=== PATIENT | female | born 1935 | race Caucasian/White ===

== ENCOUNTER 2018-05-06 16:20 | Observation (INO) ==
[2018-05-06] MEDS ORDERED: ALUM/MAG/SIMETH/LIDO VISC 1:1 30 ML BOTTLE PO STA (16:47)
[2018-05-06] MEDS ORDERED: SODIUM CHLORIDE 0.9% 500 ML IV STA (16:47)
[2018-05-06] MEDS ORDERED: METOPROLOL TARTRATE 25 MG TABLET PO STA (16:47)
[2018-05-06] MEDS ORDERED: ASPIRIN 325 MG TABLET PO STA (16:47)
[2018-05-06] MEDS ORDERED: ONDANSETRON 4 MG/2 ML VIAL IV STA (16:47)
[2018-05-06] MEDS ORDERED: MORPHINE 4 MG/1 ML VIAL IV STA (16:47)
[2018-05-06] MEDS ORDERED: NITROGLYCERIN 2% OINT 1 INCH/GM PACK TOP STA (16:47)
[2018-05-06 16:52] LABS: Basophils % 0.6 % (0.0-0.8); Eosinophils # 0.2 10*3/uL (0.0-0.87); Eosinophils % 2.2 % (0.00-10.9); Hematocrit 37.7 VOL% (35.7-47.0); Hemoglobin 12.4 GM/DL (12.0-16.0); Immature Granulocytes % 0.4 %; Immature Granulocytes Absolute 0.03 #; Lymphocytes # 1.6 10*3/uL (1.4-4.0); Lymphocytes % 21.6 % (21.3-54.2); Mean Corpuscular HGB Conc 32.9 GM/DL (32-36); Mean Corpuscular Hemoglobin 29 PG (27-34); Mean Corpuscular Volume 87.1 FL (87-102); Mean Platelet Volume 9.1 FL (9.6-12.0); Monocytes # 0.7 10*3/uL (0.11-0.8); Neutrophils # 4.7 10*3/uL (1.4-7.4); Neutrophils % 65.2 % (38.7-73.9); Platelet Count 250 T/CUMM (130-400); Red Blood Count 4.33 MC/CUMM (3.8-5.5); Red Cell Distribution Width 13.3 % (9.3-17.3); White Blood Count 7.2 T/CUMM (4-12)
[2018-05-06 17:01] LABS: PT Patient Result 10.7 SECS
[2018-05-06 17:17] LABS: Alanine Aminotransferase 17 U/L (13-56); Albumin 2.9 G/DL (3.4-5.0); Alkaline Phosphatase 107 U/L (45-117); Aspartate Amino Transferase 15 U/L (0-37); Bilirubin,Total < 0.39 MG/DL (0.2-1.0); Blood Urea Nitrogen 8 MG/DL (7-18); Calcium 9.5 MG/DL (8.5-10.1); Glucose 100 MG/DL (74-106); Osmolality,Calculated 283.8 MOS/KG (273-304); Potassium 2.7 MMOL/L (3.5-5.1); Sodium 144 MMOL/L (136-145); Total Protein 6.8 G/DL (6.4-8.3)
[2018-05-06] MEDS ORDERED: POTASSIUM CHLORIDE 20 MEQ TABLET PO STA (17:27)
[2018-05-06 17:38] LABS: Apearance,Urine CLEAR (Clear); Bilirubin,Urine Negative (Negative); Blood, Urine Negative (Negative); Glucose,Urine (UA) Negative (Negative); Ketones,Urine Negative (Negative); Nitrite,Urine Negative (Negative); Protein,Urine Negative; RBC,Urine 1 /HPF (0-4); Urine Color Colorless (Yellow); Urine Specific Gravity 1.004 (1.001-1.035); Urine Urobilinogen < 2.0 EU/DL (0.2-1.0)
[2018-05-06] MEDS ORDERED: ONDANSETRON 4 MG/2 ML VIAL IV PRN (19:46)
[2018-05-06] MEDS ORDERED: MORPHINE 4 MG/1 ML VIAL IV PRN (19:46)
[2018-05-06] MEDS: DOCUSATE SODIUM 100 MG CAPSULE PO SCH (21:01)
[2018-05-06] MEDS: SODIUM CHLORIDE 0.9% 1,000 ML IV SCH (21:01)
[2018-05-06] MEDS: APIXABAN 2.5 MG TABLET PO SCH (21:01)
[2018-05-06] MEDS: SIMVASTATIN 20 MG TABLET PO SCH (21:01)
[2018-05-07] MEDS: NITROGLYCERIN 2% OINT 1 INCH/GM PACK TOP SCH ×5 (00:04→23:02)
[2018-05-07 03:40] LABS: Basophils % 0.7 % (0.0-0.8); Eosinophils # 0.2 10*3/uL (0.0-0.87); Hematocrit 30.7 VOL% (35.7-47.0); Hemoglobin 10.1 GM/DL (12.0-16.0); Immature Granulocytes % 0.4 %; Immature Granulocytes Absolute 0.02 #; Lymphocytes # 1.3 10*3/uL (1.4-4.0); Lymphocytes % 28.4 % (21.3-54.2); Mean Corpuscular HGB Conc 32.9 GM/DL (32-36); Mean Corpuscular Hemoglobin 29 PG (27-34); Mean Platelet Volume 9.5 FL (9.6-12.0); Monocytes # 0.6 10*3/uL (0.11-0.8); Monocytes % 12.6 % (1.7-12.7); Neutrophils # 2.4 10*3/uL (1.4-7.4); Neutrophils % 53.9 % (38.7-73.9); Platelet Count 184 T/CUMM (130-400); Red Blood Count 3.49 MC/CUMM (3.8-5.5); Red Cell Distribution Width 13.5 % (9.3-17.3); White Blood Count 4.5 T/CUMM (4-12)
[2018-05-07 04:01] LABS: Albumin 2.2 G/DL (3.4-5.0); Bilirubin,Total 0.9 MG/DL (0.2-1.0); Calcium 8.8 MG/DL (8.5-10.1); Osmolality,Calculated 289.6 MOS/KG (273-304); Potassium 3.2 MMOL/L (3.5-5.1); Risk Ratio 2.3; Total Protein 5.2 G/DL (6.4-8.3); VLDL CHOLESTEROL 25.2 MG/DL
[2018-05-07] MEDS: LEVOTHYROXINE 50 MCG TABLET PO SCH ×2 (06:04→09:23)
[2018-05-07] MEDS: ACETAMINOPHEN 325 MG TABLET PO PRN ×2 (08:09→17:13)
[2018-05-07] MEDS ORDERED: ASPIRIN EC 81 MG TABLET PO SCH (09:00)
[2018-05-07] MEDS: LOSARTAN 25 MG TABLET PO SCH (09:23)
[2018-05-07] MEDS: PARoxetine 20 MG TABLET PO SCH (09:23)
[2018-05-07] MEDS: DOCUSATE SODIUM 100 MG CAPSULE PO SCH ×2 (09:23→21:45)
[2018-05-07] MEDS: PANTOPRAZOLE 40 MG TABLET PO SCH (09:23)
[2018-05-07] MEDS: APIXABAN 2.5 MG TABLET PO SCH ×2 (09:23→21:45)
[2018-05-07] MEDS: FUROSEMIDE 20 MG TABLET PO SCH (09:23)
[2018-05-07] MEDS: SODIUM CHLORIDE 0.9% 1,000 ML IV SCH (09:39)
[2018-05-07] MEDS: POTASSIUM CHLORIDE 20 MEQ TABLET PO PRN ×4 (09:39→16:31)
[2018-05-07] MEDS ORDERED: POTASSIUM CHLORIDE RIDER 10 MEQ in PREMIX 1 EACH IV PRN (10:44)
[2018-05-07 14:02] LABS: Hematocrit 35.7 VOL% (35.7-47.0); Hemoglobin 11.7 GM/DL (12.0-16.0)
[2018-05-07 14:35] LABS: Free T4 (Free Thyroxine) 0.98 NG/DL (0.76-1.46); Thyroid Stimulating Hormone 3.64 uIU/ml (0.358-3.74)
[2018-05-07] MEDS: DRONEDARONE 400 MG TABLET PO SCH (17:12)
[2018-05-07] MEDS: SIMVASTATIN 20 MG TABLET PO SCH (21:45)
[2018-05-08 04:42] LABS: Basophils % 0.3 % (0.0-0.8); Eosinophils # 0.2 10*3/uL (0.0-0.87); Hematocrit 33.6 VOL% (35.7-47.0); Hemoglobin 10.8 GM/DL (12.0-16.0); Immature Granulocytes % 0.3 %; Immature Granulocytes Absolute 0.02 #; Lymphocytes # 1.4 10*3/uL (1.4-4.0); Lymphocytes % 22.1 % (21.3-54.2); Mean Corpuscular HGB Conc 32.1 GM/DL (32-36); Mean Corpuscular Hemoglobin 28 PG (27-34); Mean Corpuscular Volume 88.2 FL (87-102); Mean Platelet Volume 9.3 FL (9.6-12.0); Monocytes # 0.6 10*3/uL (0.11-0.8); Monocytes % 8.7 % (1.7-12.7); Neutrophils # 4.1 10*3/uL (1.4-7.4); Neutrophils % 65.6 % (38.7-73.9); Platelet Count 217 T/CUMM (130-400); Red Blood Count 3.81 MC/CUMM (3.8-5.5); Red Cell Distribution Width 13.3 % (9.3-17.3); White Blood Count 6.3 T/CUMM (4-12)
[2018-05-08 05:11] LABS: Calcium 9.1 MG/DL (8.5-10.1); Osmolality,Calculated 287.7 MOS/KG (273-304); Potassium 4.7 MMOL/L (3.5-5.1)
[2018-05-08] MEDS: NITROGLYCERIN 2% OINT 1 INCH/GM PACK TOP SCH ×2 (06:01→12:37)
[2018-05-08] MEDS: LEVOTHYROXINE 50 MCG TABLET PO SCH (06:01)
[2018-05-08 08:20] VITALS: BP 136/68
[2018-05-08] MEDS: PANTOPRAZOLE 40 MG TABLET PO SCH (09:01)
[2018-05-08] MEDS: LOSARTAN 25 MG TABLET PO SCH (09:01)
[2018-05-08] MEDS: DRONEDARONE 400 MG TABLET PO SCH (09:01)
[2018-05-08] MEDS: FUROSEMIDE 20 MG TABLET PO SCH (09:01)
[2018-05-08] MEDS: APIXABAN 2.5 MG TABLET PO SCH (09:01)
[2018-05-08] MEDS: DOCUSATE SODIUM 100 MG CAPSULE PO SCH (09:01)
[2018-05-08] MEDS: PARoxetine 20 MG TABLET PO SCH (09:01)
[2018-05-08] MEDS ORDERED: POTASSIUM CHLORIDE 20 MEQ TABLET PO SCH (13:30)
== END 2018-05-08 13:25 | disposition home or self-care (01) ==
LOC: EDUNIT# → EDBD → N.ED 16:20 → N.EDINP 16:20 → N.TELES 19:17
PROVIDERS: ADMIT Family Medicine; ATTEND Family Medicine

== ENCOUNTER 2018-05-16 20:11 | Inpatient (IN) ==
[2018-05-16] MEDS ORDERED: DILTIAZEM 50 MG/10 ML VIAL IV STA (20:37)
[2018-05-16] MEDS ORDERED: ONDANSETRON 4 MG/2 ML VIAL IV STA (20:37)
[2018-05-16] MEDS ORDERED: DILTIAZEM 25 MG/5 ML VIAL IV ONE (20:59)
[2018-05-16] MEDS ORDERED: METOPROLOL TARTRATE 25 MG TABLET PO STA (21:17)
[2018-05-16 21:24] LABS: Basophils # 0.1 10*3/uL (0.0-0.2); Basophils % 0.5 % (0.0-0.8); Eosinophils # 0.1 10*3/uL (0.0-0.87); Eosinophils % 1.2 % (0.00-10.9); Hematocrit 43.8 VOL% (35.7-47.0); Hemoglobin 14.6 GM/DL (12.0-16.0); Immature Granulocytes % 0.6 %; Immature Granulocytes Absolute 0.06 #; Lymphocytes # 1.8 10*3/uL (1.4-4.0); Lymphocytes % 19.8 % (21.3-54.2); Mean Corpuscular HGB Conc 33.3 GM/DL (32-36); Mean Corpuscular Hemoglobin 29 PG (27-34); Mean Corpuscular Volume 87.3 FL (87-102); Mean Platelet Volume 9.4 FL (9.6-12.0); Monocytes # 0.8 10*3/uL (0.11-0.8); Monocytes % 8.1 % (1.7-12.7); Neutrophils # 6.5 10*3/uL (1.4-7.4); Neutrophils % 69.8 % (38.7-73.9); Platelet Count 356 T/CUMM (130-400); Red Blood Count 5.02 MC/CUMM (3.8-5.5); Red Cell Distribution Width 13.2 % (9.3-17.3); White Blood Count 9.3 T/CUMM (4-12)
[2018-05-16 21:39] LABS: PT Patient Result 10.7 SECS; Partial Thromboplastin Time 30.8 SECS (0-40)
[2018-05-16 21:52] LABS: Alanine Aminotransferase 15 U/L (13-56); Albumin 2.9 G/DL (3.4-5.0); Alkaline Phosphatase 125 U/L (45-117); Aspartate Amino Transferase 13 U/L (0-37); Bilirubin,Total < 0.39 MG/DL (0.2-1.0); Blood Urea Nitrogen 18 MG/DL (7-18); Calcium 11.3 MG/DL (8.5-10.1); Glucose 148 MG/DL (74-106); Osmolality,Calculated 281.5 MOS/KG (273-304); Potassium 4.4 MMOL/L (3.5-5.1); Sodium 139 MMOL/L (136-145); Total Protein 7.3 G/DL (6.4-8.3); Troponin I 0.015 NG/ML (0.00-0.045)
[2018-05-16 21:58] LABS: Free T4 (Free Thyroxine) 1.1 NG/DL (0.76-1.46); Thyroid Stimulating Hormone 5.13 uIU/ml (0.358-3.74)
[2018-05-16] MEDS ORDERED: ONDANSETRON 4 MG/2 ML VIAL IV PRN (22:22)
[2018-05-16] MEDS ORDERED: ACETAMINOPHEN 500 MG TABLET PO PRN (22:22)
[2018-05-17 04:50] LABS: Troponin I 0.021 NG/ML (0.00-0.045)
[2018-05-17] MEDS ORDERED: LEVOTHYROXINE 50 MCG TABLET PO SCH (06:30)
[2018-05-17] MEDS ORDERED: DRONEDARONE 400 MG TABLET PO SCH (08:00)
[2018-05-17] MEDS ORDERED: FUROSEMIDE 40 MG/4 ML VIAL IV SCH (08:00)
[2018-05-17] MEDS ORDERED: PANTOPRAZOLE 40 MG TABLET PO SCH (09:00)
[2018-05-17] MEDS ORDERED: METOPROLOL TARTRATE 25 MG TABLET PO SCH (09:00)
[2018-05-17] MEDS ORDERED: PARoxetine 20 MG TABLET PO SCH (09:00)
[2018-05-17] MEDS ORDERED: APIXABAN 5 MG TABLET PO SCH (09:00)
[2018-05-17] MEDS: LOSARTAN 25 MG TABLET PO SCH (13:45)
[2018-05-17] MEDS: APIXABAN 5 MG TABLET PO SCH ×2 (13:45→21:09)
[2018-05-17] MEDS: PARoxetine 20 MG TABLET PO SCH (13:45)
[2018-05-17] MEDS: DRONEDARONE 400 MG TABLET PO SCH ×2 (13:45→16:42)
[2018-05-17] MEDS: POTASSIUM CHLORIDE 20 MEQ TABLET PO SCH (13:45)
[2018-05-17] MEDS: FUROSEMIDE 20 MG TABLET PO SCH (13:45)
[2018-05-17] MEDS: SIMVASTATIN 20 MG TABLET PO SCH (16:42)
[2018-05-17] MEDS ORDERED: LOVASTATIN 20 MG TABLET PO SCH (17:00)
[2018-05-18 04:50] LABS: Basophils # 0.1 10*3/uL (0.0-0.2); Basophils % 0.6 % (0.0-0.8); Eosinophils # 0.2 10*3/uL (0.0-0.87); Eosinophils % 2.2 % (0.00-10.9); Hematocrit 40.9 VOL% (35.7-47.0); Immature Granulocytes % 0.5 %; Immature Granulocytes Absolute 0.04 #; Lymphocytes # 2.8 10*3/uL (1.4-4.0); Lymphocytes % 34.4 % (21.3-54.2); Mean Corpuscular HGB Conc 31.8 GM/DL (32-36); Mean Corpuscular Hemoglobin 28 PG (27-34); Mean Corpuscular Volume 89.3 FL (87-102); Mean Platelet Volume 9.1 FL (9.6-12.0); Monocytes # 0.8 10*3/uL (0.11-0.8); Monocytes % 9.5 % (1.7-12.7); Neutrophils # 4.4 10*3/uL (1.4-7.4); Neutrophils % 52.8 % (38.7-73.9); Platelet Count 332 T/CUMM (130-400); Red Blood Count 4.58 MC/CUMM (3.8-5.5); Red Cell Distribution Width 13.1 % (9.3-17.3); White Blood Count 8.3 T/CUMM (4-12)
[2018-05-18 05:14] LABS: Calcium 9.7 MG/DL (8.5-10.1); Osmolality,Calculated 281.5 MOS/KG (273-304); Potassium 4.4 MMOL/L (3.5-5.1)
[2018-05-18] MEDS ORDERED: LEVOTHYROXINE 50 MCG TABLET PO SCH (06:30)
[2018-05-18] MEDS: LOSARTAN 25 MG TABLET PO SCH (09:00)
[2018-05-18] MEDS: APIXABAN 5 MG TABLET PO SCH ×2 (09:00→21:17)
[2018-05-18] MEDS: PARoxetine 20 MG TABLET PO SCH (09:00)
[2018-05-18] MEDS: DRONEDARONE 400 MG TABLET PO SCH (09:00)
[2018-05-18] MEDS: POTASSIUM CHLORIDE 20 MEQ TABLET PO SCH (09:00)
[2018-05-18] MEDS: FUROSEMIDE 20 MG TABLET PO SCH (09:00)
[2018-05-18] MEDS ORDERED: SOTALOL 80 MG TABLET PO ONE (10:08)
[2018-05-18 11:48] LABS: Apearance,Urine CLEAR (Clear); Bilirubin,Urine Negative (Negative); Blood, Urine Negative (Negative); Glucose,Urine (UA) Negative (Negative); Hyaline Casts,Urine 4 /LPF (0-3); Ketones,Urine Negative (Negative); Mucus,Urine Occasional /LPF (Occasional); Nitrite,Urine Negative (Negative); Protein,Urine Negative; RBC,Urine <1 /HPF (0-4); Urine Color Straw (Yellow); Urine Specific Gravity 1.006 (1.001-1.035); Urine Urobilinogen < 2.0 EU/DL (0.2-1.0)
[2018-05-18] MEDS: SIMVASTATIN 20 MG TABLET PO SCH (17:16)
[2018-05-18] MEDS: SOTALOL 80 MG TABLET PO SCH (21:16)
[2018-05-19 05:04] LABS: Basophils # 0.1 10*3/uL (0.0-0.2); Basophils % 0.7 % (0.0-0.8); Eosinophils # 0.2 10*3/uL (0.0-0.87); Eosinophils % 2.6 % (0.00-10.9); Hematocrit 38.7 VOL% (35.7-47.0); Hemoglobin 12.7 GM/DL (12.0-16.0); Immature Granulocytes % 0.9 %; Immature Granulocytes Absolute 0.06 #; Lymphocytes # 2.5 10*3/uL (1.4-4.0); Lymphocytes % 35.5 % (21.3-54.2); Mean Corpuscular HGB Conc 32.8 GM/DL (32-36); Mean Corpuscular Hemoglobin 29 PG (27-34); Mean Corpuscular Volume 87.2 FL (87-102); Mean Platelet Volume 9.4 FL (9.6-12.0); Monocytes # 0.6 10*3/uL (0.11-0.8); Monocytes % 8.5 % (1.7-12.7); Neutrophils # 3.6 10*3/uL (1.4-7.4); Neutrophils % 51.8 % (38.7-73.9); Platelet Count 277 T/CUMM (130-400); Red Blood Count 4.44 MC/CUMM (3.8-5.5)
[2018-05-19 05:34] LABS: Calcium 9.9 MG/DL (8.5-10.1); Osmolality,Calculated 283.4 MOS/KG (273-304); Potassium 4.4 MMOL/L (3.5-5.1)
[2018-05-19] MEDS: LEVOTHYROXINE 75 MCG TABLET PO SCH (06:11)
[2018-05-19] MEDS: SOTALOL 80 MG TABLET PO SCH ×5 (06:24→23:26)
[2018-05-19] MEDS ORDERED: DIGOXIN 0.5 MG/2 ML AMP IV ONE (09:06)
[2018-05-19] MEDS: POTASSIUM CHLORIDE 20 MEQ TABLET PO SCH (09:13)
[2018-05-19] MEDS: PARoxetine 20 MG TABLET PO SCH (09:13)
[2018-05-19] MEDS: APIXABAN 5 MG TABLET PO SCH ×2 (09:13→21:16)
[2018-05-19] MEDS ORDERED: ACETAMINOPHEN 325 MG TABLET PO PRN (10:35)
[2018-05-19] MEDS: SIMVASTATIN 20 MG TABLET PO SCH (17:28)
[2018-05-20] MEDS: LEVOTHYROXINE 75 MCG TABLET PO SCH (06:02)
[2018-05-20] MEDS: SOTALOL 80 MG TABLET PO SCH ×4 (06:02→17:22)
[2018-05-20] MEDS: POTASSIUM CHLORIDE 20 MEQ TABLET PO SCH (08:47)
[2018-05-20] MEDS: APIXABAN 5 MG TABLET PO SCH ×2 (08:47→21:18)
[2018-05-20] MEDS: PARoxetine 20 MG TABLET PO SCH (08:47)
[2018-05-20 10:29] LABS: Osmolality,Calculated 281.5 MOS/KG (273-304); Potassium 4.7 MMOL/L (3.5-5.1)
[2018-05-20] MEDS: SIMVASTATIN 20 MG TABLET PO SCH (17:22)
[2018-05-21] MEDS: SOTALOL 80 MG TABLET PO SCH ×4 (00:43→17:02)
[2018-05-21 05:25] LABS: Basophils # 0.1 10*3/uL (0.0-0.2); Basophils % 0.7 % (0.0-0.8); Eosinophils # 0.2 10*3/uL (0.0-0.87); Eosinophils % 2.5 % (0.00-10.9); Hematocrit 40.8 VOL% (35.7-47.0); Hemoglobin 13.1 GM/DL (12.0-16.0); Immature Granulocytes % 0.5 %; Immature Granulocytes Absolute 0.04 #; Lymphocytes # 2.6 10*3/uL (1.4-4.0); Lymphocytes % 33.8 % (21.3-54.2); Mean Corpuscular HGB Conc 32.1 GM/DL (32-36); Mean Corpuscular Hemoglobin 29 PG (27-34); Mean Corpuscular Volume 89.5 FL (87-102); Mean Platelet Volume 9.6 FL (9.6-12.0); Monocytes # 0.7 10*3/uL (0.11-0.8); Neutrophils # 4.1 10*3/uL (1.4-7.4); Neutrophils % 53.5 % (38.7-73.9); Platelet Count 286 T/CUMM (130-400); Red Blood Count 4.56 MC/CUMM (3.8-5.5); White Blood Count 7.6 T/CUMM (4-12)
[2018-05-21 05:35] LABS: Calcium 10.1 MG/DL (8.5-10.1); Osmolality,Calculated 286.1 MOS/KG (273-304)
[2018-05-21] MEDS: LEVOTHYROXINE 75 MCG TABLET PO SCH (06:03)
[2018-05-21] MEDS: APIXABAN 5 MG TABLET PO SCH ×2 (09:44→22:03)
[2018-05-21] MEDS ORDERED: PROPOFOL 200 MG/20 ML VIAL IV ONE (11:37)
[2018-05-21] MEDS: PARoxetine 20 MG TABLET PO SCH (13:44)
[2018-05-21] MEDS: POTASSIUM CHLORIDE 20 MEQ TABLET PO SCH (13:44)
[2018-05-21] MEDS: SIMVASTATIN 20 MG TABLET PO SCH (17:02)
[2018-05-21] MEDS ORDERED: diphenhydrAMINE CAP 25 MG CAPSULE PO PRN (23:15)
[2018-05-22] MEDS: SOTALOL 80 MG TABLET PO SCH ×3 (02:00→08:54)
[2018-05-22] MEDS: LEVOTHYROXINE 75 MCG TABLET PO SCH (07:34)
[2018-05-22] MEDS: POTASSIUM CHLORIDE 20 MEQ TABLET PO SCH (08:54)
[2018-05-22] MEDS: PARoxetine 20 MG TABLET PO SCH (08:54)
[2018-05-22] MEDS: APIXABAN 5 MG TABLET PO SCH (08:55)
[2018-05-22] MEDS ORDERED: ASPIRIN EC 81 MG TABLET PO SCH (11:00)
[2018-05-22 12:29] VITALS: BP 126/72
[2018-05-22] MEDS ORDERED: SOTALOL 80 MG TABLET PO SCH (21:00)
== END 2018-05-22 14:00 | disposition home health service (06) | DRG 309 ==
LOC: N.ED 20:11 → N.TELEN 22:21
PROVIDERS: ADMIT Family Medicine; ATTEND Family Medicine

== ENCOUNTER 2019-08-15 21:05 | Observation (INO) ==
[2019-08-15] MEDS ORDERED: SODIUM CHLORIDE 0.9% 1,000 ML IV STA (21:26)
[2019-08-15 21:33] LABS: Basophils % 0.5 % (0.0-0.8); Eosinophils # 0.1 10*3/uL (0.0-0.87); Hematocrit 41.9 VOL% (35.7-47.0); Hemoglobin 13.6 GM/DL (12.0-16.0); Immature Granulocytes % 0.5 %; Immature Granulocytes Absolute 0.03 #; Lymphocytes # 2.1 10*3/uL (1.4-4.0); Mean Corpuscular HGB Conc 32.5 GM/DL (32-36); Mean Corpuscular Volume 90.1 FL (87-102); Mean Platelet Volume 9.7 FL (9.6-12.0); Monocytes % 9.9 % (1.7-12.7); Neutrophils % 52.1 % (38.7-73.9); Platelet Count 188 T/CUMM (130-400); Red Blood Count 4.65 MC/CUMM (3.8-5.5); Red Cell Distribution Width 13.2 % (9.3-17.3); White Blood Count 6.1 T/CUMM (4-12)
[2019-08-15 21:49] LABS: Apearance,Urine Slightly Hazy (Clear); Bacteria,Urine Occasional /HPF (Few); Bilirubin,Urine Negative (Negative); Blood, Urine Negative (Negative); Glucose,Urine (UA) Negative (Negative); Ketones,Urine Negative (Negative); Mucus,Urine Occasional /LPF (Occasional); Nitrite,Urine Negative (Negative); Protein,Urine Negative; RBC,Urine 11 /HPF (0-4); Squamous Epithelial Cell,Urine Occasional /HPF (0-10); Urine Color Yellow (Yellow); Urine Specific Gravity 1.005 (1.001-1.035); Urine Urobilinogen < 2.0 EU/DL (0.2-1.0); WBC,Urine 22 /HPF (0-6)
[2019-08-15 21:55] LABS: Alanine Aminotransferase 20 U/L (13-56); Albumin 2.9 G/DL (3.4-5.0); Alkaline Phosphatase 103 U/L (45-117); Aspartate Amino Transferase 19 U/L (0-37); Bilirubin,Total < 0.39 MG/DL (0.2-1.0); Blood Urea Nitrogen 12 MG/DL (7-18); Estimated Glom Filtration Rate 45 ML/MIN; Glucose 110 MG/DL (74-106); Osmolality,Calculated 281.3 MOS/KG (273-304); Total Protein 6.2 G/DL (6.4-8.3)
[2019-08-15 22:11] LABS: INR 0.9; PT Patient Result 10.1 SECS (9.6-12.2)
[2019-08-15] MEDS ORDERED: cefTRIAXone 1,000 MG in SODIUM CHLORIDE 0.9% 100 ML IV STA (22:14)
[2019-08-15] MEDS ORDERED: POTASSIUM CHLORIDE 20 MEQ/15 ML UDCUP PO ONE (22:47)
[2019-08-16] MEDS ORDERED: LEVOTHYROXINE 50 MCG TABLET PO SCH (06:00)
[2019-08-16] MEDS ORDERED: ACETAMINOPHEN 325 MG TABLET PO ONE (06:48)
[2019-08-16 07:30] LABS: Calcium 9.2 MG/DL (8.5-10.1); Osmolality,Calculated 281.1 MOS/KG (273-304)
[2019-08-16] MEDS ORDERED: POTASSIUM CHLORIDE 20 MEQ TABLET PO SCH (09:00)
[2019-08-16] MEDS ORDERED: GABAPENTIN 100 MG CAPSULE PO SCH (09:00)
[2019-08-16] MEDS ORDERED: APIXABAN 2.5 MG TABLET PO SCH (09:00)
[2019-08-16] MEDS ORDERED: PARoxetine 20 MG TABLET PO SCH (09:00)
[2019-08-16] MEDS ORDERED: LOSARTAN 25 MG TABLET PO SCH (09:00)
[2019-08-16] MEDS ORDERED: PANTOPRAZOLE 40 MG TABLET PO SCH (09:00)
[2019-08-16] MEDS ORDERED: GINKGO BILOBA 60 MG PO SCH (09:00)
[2019-08-16] MEDS ORDERED: FUROSEMIDE 20 MG TABLET PO SCH (09:00)
[2019-08-16] MEDS ORDERED: CHOLECALCIFEROL 1,000 UNIT TABLET PO SCH (09:00)
[2019-08-16] MEDS ORDERED: SOTALOL 80 MG TABLET PO SCH (09:00)
[2019-08-16] MEDS ORDERED: OMEGA 3 ACID ETHYL ESTERS 1 GM CAPSULE PO SCH (09:00)
[2019-08-16] MEDS ORDERED: ASCORBIC ACID 500 MG TABLET PO SCH (09:00)
[2019-08-16] MEDS ORDERED: ASPIRIN EC 81 MG TABLET PO SCH (09:00)
[2019-08-16 11:54] VITALS: BP 93/38
[2019-08-16] MEDS ORDERED: cefTRIAXone 1,000 MG in SYRINGE 1 EACH IV SCH (21:00)
[2019-08-16] MEDS ORDERED: ACETAMINOPHEN 325 MG TABLET PO SCH (21:00)
[2019-08-16] MEDS ORDERED: SIMVASTATIN 20 MG TABLET PO SCH (21:00)
== END 2019-08-16 14:17 | disposition home or self-care (01) ==
LOC: EDBD → EDUNIT# → N.ED 21:05 → N.EDINP 21:05 → SUATTDRO 23:29 → N.2E 08-16 01:00
PROVIDERS: ADMIT Internal Medicine; ATTEND Internal Medicine

== ENCOUNTER 2019-10-17 11:53 | Observation (INO) ==
[2019-10-17] MEDS ORDERED: DILTIAZEM 50 MG/10 ML VIAL IV STA ×2 (12:27→14:38)
[2019-10-17] MEDS ORDERED: DILTIAZEM 25 MG/5 ML VIAL IV ONE (12:28)
[2019-10-17 13:09] LABS: Basophils % 0.4 % (0.0-0.8); Eosinophils # 0.1 10*3/uL (0.0-0.87); Eosinophils % 1.6 % (0.00-10.9); Hemoglobin 14.3 GM/DL (12.0-16.0); Immature Granulocytes % 0.3 %; Immature Granulocytes Absolute 0.02 #; Lymphocytes # 2.2 10*3/uL (1.4-4.0); Lymphocytes % 31.7 % (21.3-54.2); Mean Corpuscular HGB Conc 32.5 GM/DL (32-36); Mean Corpuscular Volume 88.9 FL (87-102); Mean Platelet Volume 9.6 FL (9.6-12.0); Monocytes % 9.9 % (1.7-12.7); Neutrophils % 56.1 % (38.7-73.9); Platelet Count 223 T/CUMM (130-400); Red Blood Count 4.95 MC/CUMM (3.8-5.5); White Blood Count 6.9 T/CUMM (4-12)
[2019-10-17 13:40] LABS: Alanine Aminotransferase 14 U/L (13-56); Albumin 2.9 G/DL (3.4-5.0); Alkaline Phosphatase 97 U/L (45-117); Aspartate Amino Transferase 19 U/L (0-37); Bilirubin,Total < 0.39 MG/DL (0.2-1.0); Blood Urea Nitrogen 18 MG/DL (7-18); Calcium 9.8 MG/DL (8.5-10.1); Estimated Glom Filtration Rate 40 ML/MIN; Glucose 112 MG/DL (74-106); Osmolality,Calculated 279.5 MOS/KG (273-304); Total Protein 6.4 G/DL (6.4-8.3)
[2019-10-17] MEDS ORDERED: MORPHINE 4 MG/1 ML VIAL IV PRN (13:56)
[2019-10-17] MEDS ORDERED: MAGNESIUM SULF RIDER 4 GM in PREMIX 1 EACH IV PRN (13:56)
[2019-10-17] MEDS ORDERED: POTASSIUM CHLORIDE 20 MEQ TABLET PO PRN (13:56)
[2019-10-17] MEDS ORDERED: MAGNESIUM SULF RIDER 2 GM in PREMIX 1 EACH IV PRN (13:56)
[2019-10-17] MEDS ORDERED: ONDANSETRON 4 MG/2 ML VIAL IV PRN (13:56)
[2019-10-17] MEDS ORDERED: SODIUM CHLORIDE 0.45% 1,000 ML IV SCH (14:00)
[2019-10-17] MEDS ORDERED: NITROGLYCERIN SL 0.4 MG TABLET SL PRN (14:01)
[2019-10-17] MEDS ORDERED: traZODone 50 MG TABLET PO PRN (14:01)
[2019-10-17] MEDS: AMIODARONE 200 MG TABLET PO SCH ×2 (16:15→20:47)
[2019-10-17] MEDS: METOPROLOL TARTRATE 25 MG TABLET PO SCH ×2 (16:15→20:48)
[2019-10-17] MEDS ORDERED: DILTIAZEM 60 MG TABLET PO ONE (17:23)
[2019-10-17] MEDS: DILTIAZEM 30 MG TABLET PO SCH (20:47)
[2019-10-17] MEDS: APIXABAN 2.5 MG TABLET PO SCH (20:48)
[2019-10-17] MEDS ORDERED: SOTALOL 80 MG TABLET PO SCH (21:00)
[2019-10-17] MEDS ORDERED: GINKGO BILOBA 60 MG PO SCH (21:00)
[2019-10-17] MEDS ORDERED: SIMVASTATIN 20 MG TABLET PO SCH (21:00)
[2019-10-18 06:49] LABS: Calcium 9.6 MG/DL (8.5-10.1); Osmolality,Calculated 281.4 MOS/KG (273-304)
[2019-10-18] MEDS: DILTIAZEM 30 MG TABLET PO SCH (08:59)
[2019-10-18] MEDS: APIXABAN 2.5 MG TABLET PO SCH (08:59)
[2019-10-18] MEDS: METOPROLOL TARTRATE 25 MG TABLET PO SCH (08:59)
[2019-10-18] MEDS: AMIODARONE 200 MG TABLET PO SCH (08:59)
[2019-10-18] MEDS ORDERED: FUROSEMIDE 20 MG TABLET PO SCH (09:00)
[2019-10-18] MEDS ORDERED: PARoxetine 20 MG TABLET PO SCH (09:00)
[2019-10-18] MEDS ORDERED: ASPIRIN EC 81 MG TABLET PO SCH (09:00)
[2019-10-18] MEDS ORDERED: LOSARTAN 25 MG TABLET PO SCH (09:00)
[2019-10-18] MEDS ORDERED: CHOLECALCIFEROL 1,000 UNIT TABLET PO SCH (09:00)
[2019-10-18] MEDS ORDERED: LEVOTHYROXINE 50 MCG TABLET PO SCH (09:00)
[2019-10-18] MEDS ORDERED: POTASSIUM CHLORIDE 20 MEQ TABLET PO SCH (09:00)
[2019-10-18 11:46] VITALS: BP 100/55
[2019-10-19] MEDS ORDERED: MULTIVITAMIN (CENTRUM) TABLET PO SCH (09:00)
[2019-10-19] MEDS ORDERED: DILTIAZEM CD 120 MG CAPSULE PO SCH (09:00)
[2019-10-19] MEDS ORDERED: OMEGA 3 ACID ETHYL ESTERS 1 GM CAPSULE PO SCH (09:00)
[2019-10-19] MEDS ORDERED: ASCORBIC ACID 500 MG TABLET PO SCH (09:00)
== END 2019-10-18 12:37 | disposition home or self-care (01) ==
LOC: EDUNIT# → EDBD → N.ED 11:53 → N.EDINP 11:53 → N.TELES 15:06
PROVIDERS: ADMIT Internal Medicine Cardiovascular Disease; ATTEND Internal Medicine Cardiovascular Disease

== ENCOUNTER 2020-01-03 11:31 | Inpatient (IN) ==
[2020-01-03 14:35] LABS: Basophils % 0.2 % (0.0-0.8); Hemoglobin 16.5 GM/DL (12.0-16.0); Immature Granulocytes % 0.4 %; Immature Granulocytes Absolute 0.02 #; Lymphocytes % 21.8 % (21.3-54.2); Mean Corpuscular HGB Conc 32.4 GM/DL (32-36); Mean Corpuscular Volume 89.8 FL (87-102); Mean Platelet Volume 9.2 FL (9.6-12.0); Monocytes % 5.2 % (1.7-12.7); Neutrophils % 72.4 % (38.7-73.9); Platelet Count 109 T/CUMM (130-400); Red Blood Count 5.68 MC/CUMM (3.8-5.5); Red Cell Distribution Width 13.9 % (9.3-17.3); White Blood Count 4.6 T/CUMM (4-12)
[2020-01-03 14:59] LABS: Bacteria,Urine Occasional /HPF (Few); Bilirubin,Urine Negative (Negative); Blood, Urine Negative (Negative); Glucose,Urine (UA) Negative (Negative); Hyaline Casts,Urine 3 /LPF (0-3); Ketones,Urine Negative (Negative); Mucus,Urine Occasional /LPF (Occasional); Nitrite,Urine Negative (Negative); Protein,Urine Negative; RBC,Urine 1 /HPF (0-4); Squamous Epithelial Cell,Urine Occasional /HPF (0-10); Urine Appearance CLEAR (Clear); Urine Color Straw (Yellow); Urine Specific Gravity 1.006 (1.001-1.035); Urine Urobilinogen < 2.0 EU/DL (0.2-1.0); WBC,Urine 1 /HPF (0-6)
[2020-01-03 15:03] LABS: Albumin 2.7 G/DL (3.4-5.0); Bilirubin,Total 0.6 MG/DL (0.2-1.0); Calcium 9.5 MG/DL (8.5-10.1); Osmolality,Calculated 272.2 MOS/KG (273-304)
[2020-01-03] MEDS ORDERED: SODIUM CHLORIDE 0.9% 500 ML IV STA (15:18)
[2020-01-03] MEDS ORDERED: ACETAMINOPHEN 325 MG TABLET PO STA (16:10)
[2020-01-03] MEDS ORDERED: cefTRIAXone 1,000 MG in SODIUM CHLORIDE 0.9% 100 ML IV STA (16:12)
[2020-01-03] MEDS ORDERED: POTASSIUM CHLORIDE 20 MEQ TABLET PO STA (16:13)
[2020-01-03] MEDS ORDERED: AZITHROMYCIN 250 MG TABLET PO STA (16:14)
[2020-01-03] MEDS ORDERED: traZODone 50 MG TABLET PO PRN (16:52)
[2020-01-03] MEDS ORDERED: ACETAMINOPHEN 325 MG TABLET PO PRN (16:52)
[2020-01-03] MEDS ORDERED: NICOTINE 21 MG/24 HR PATCH TRANSDERM PRN (18:07)
[2020-01-03] MEDS ORDERED: ALUMINUM/MAGNES/SIMETH MAX STR 30 ML UDCUP PO PRN (18:07)
[2020-01-03] MEDS ORDERED: GLUCAGON 1 MG VIAL IM PRN (18:07)
[2020-01-03] MEDS ORDERED: DOCUSATE SODIUM 100 MG CAPSULE PO PRN (18:07)
[2020-01-03] MEDS ORDERED: ZALEPLON 5 MG CAPSULE PO PRN (18:07)
[2020-01-03] MEDS ORDERED: diphenhydrAMINE CAP 25 MG CAPSULE PO PRN (18:07)
[2020-01-03] MEDS ORDERED: SIMETHICONE CHEW 125 MG TABLET PO PRN (18:07)
[2020-01-03] MEDS ORDERED: BISACODYL 5 MG TABLET PO PRN (18:07)
[2020-01-03] MEDS ORDERED: CALCIUM CARBONATE CHEW 500 MG TABLET PO PRN (18:07)
[2020-01-03] MEDS ORDERED: guaiFENesin/DM ER 600-30 MG TABLET PO PRN (18:07)
[2020-01-03] MEDS ORDERED: LACTULOSE 20 GM/30 ML UDCUP PO PRN (18:07)
[2020-01-03] MEDS ORDERED: DEXTROSE 50% 25 GM/50 ML VIAL IV PRN (18:07)
[2020-01-03] MEDS: APIXABAN 2.5 MG TABLET PO SCH (22:49)
[2020-01-03] MEDS: AMIODARONE 200 MG TABLET PO SCH (22:49)
[2020-01-03] MEDS: SODIUM CHLORIDE 0.45% 1,000 ML IV SCH (22:50)
[2020-01-04 06:10] LABS: Basophils % 0.2 % (0.0-0.8)
[2020-01-04] MEDS: LEVOTHYROXINE 50 MCG TABLET PO SCH (06:17)
[2020-01-04 06:21] LABS: Hematocrit 32.8 VOL% (35.7-47.0); Immature Granulocytes % 0.2 %; Immature Granulocytes Absolute 0.01 #; Lymphocytes # 0.8 10*3/uL (1.4-4.0); Lymphocytes % 16.5 % (21.3-54.2); Mean Corpuscular HGB Conc 33.8 GM/DL (32-36); Mean Corpuscular Volume 88.4 FL (87-102); Mean Platelet Volume 9.8 FL (9.6-12.0); Monocytes % 6.3 % (1.7-12.7); Neutrophils % 76.8 % (38.7-73.9); Red Cell Distribution Width 13.8 % (9.3-17.3); White Blood Count 4.7 T/CUMM (4-12)
[2020-01-04 06:23] LABS: Hemoglobin 11.1 GM/DL (12.0-16.0); Platelet Count 146 T/CUMM (130-400); Red Blood Count 3.71 MC/CUMM (3.8-5.5)
[2020-01-04 06:31] LABS: Ferritin 351.6 ng/ml (8-252)
[2020-01-04 06:39] LABS: Albumin 2.2 G/DL (3.4-5.0); Osmolality,Calculated 272.1 MOS/KG (273-304); Risk Ratio 2.2; Thyroid Stimulating Hormone 2.18 uIU/ml (0.358-3.74); Total Protein 6.1 G/DL (6.4-8.3); VLDL CHOLESTEROL 25.6 MG/DL
[2020-01-04] MEDS ORDERED: PANTOPRAZOLE 40 MG TABLET PO SCH (09:00)
[2020-01-04] MEDS ORDERED: [UNRECOGNIZED DRUG - OTHER] PO SCH (09:00)
[2020-01-04] MEDS: ASPIRIN EC 81 MG TABLET PO SCH ×2 (09:50→12:39)
[2020-01-04] MEDS: ZINC GLUCONATE 50 MG TABLET PO SCH ×2 (09:50→12:43)
[2020-01-04] MEDS: PARoxetine 20 MG TABLET PO SCH ×2 (09:50→12:39)
[2020-01-04] MEDS: DILTIAZEM CD 120 MG CAPSULE PO SCH ×2 (09:50→12:40)
[2020-01-04] MEDS: AZITHROMYCIN 250 MG TABLET PO SCH ×2 (09:50→12:40)
[2020-01-04] MEDS: CHOLECALCIFEROL 1,000 UNIT TABLET PO SCH ×2 (09:50→12:39)
[2020-01-04] MEDS: AMIODARONE 200 MG TABLET PO SCH ×3 (09:50→20:28)
[2020-01-04] MEDS: APIXABAN 2.5 MG TABLET PO SCH ×3 (09:50→20:28)
[2020-01-04] MEDS: POTASSIUM CHLORIDE 20 MEQ TABLET PO SCH ×2 (09:50→12:40)
[2020-01-04] MEDS: ONDANSETRON 4 MG/2 ML VIAL IV PRN ×2 (10:10→15:58)
[2020-01-04] MEDS: cefTRIAXone 1,000 MG in SYRINGE 1 EACH IV SCH (10:10)
[2020-01-04] MEDS: METOPROLOL TARTRATE 25 MG TABLET PO SCH ×2 (12:43→20:29)
[2020-01-04] MEDS ORDERED: AZITHROMYCIN INJ 500 MG in SODIUM CHLORIDE 0.9% 250 ML IV SCH (17:30)
[2020-01-04] MEDS: SIMVASTATIN 20 MG TABLET PO SCH (20:28)
[2020-01-04] MEDS: SODIUM CHLORIDE 0.45% 1,000 ML IV SCH (20:30)
[2020-01-05 05:49] LABS: Basophils % 0.2 % (0.0-0.8); Hematocrit 33.9 VOL% (35.7-47.0); Hemoglobin 10.8 GM/DL (12.0-16.0); Immature Granulocytes % 0.4 %; Immature Granulocytes Absolute 0.02 #; Lymphocytes # 1.3 10*3/uL (1.4-4.0); Lymphocytes % 24.8 % (21.3-54.2); Mean Corpuscular HGB Conc 31.9 GM/DL (32-36); Mean Corpuscular Volume 90.9 FL (87-102); Mean Platelet Volume 9.5 FL (9.6-12.0); Monocytes % 6.6 % (1.7-12.7); Platelet Count 161 T/CUMM (130-400); Red Blood Count 3.73 MC/CUMM (3.8-5.5); Red Cell Distribution Width 13.8 % (9.3-17.3); White Blood Count 5.1 T/CUMM (4-12)
[2020-01-05 06:24] LABS: Albumin 2.1 G/DL (3.4-5.0); Bilirubin,Total 0.5 MG/DL (0.2-1.0); Calcium 8.8 MG/DL (8.5-10.1)
[2020-01-05 06:28] LABS: Ferritin 375.4 ng/ml (8-252)
[2020-01-05] MEDS: LEVOTHYROXINE 50 MCG TABLET PO SCH (06:37)
[2020-01-05] MEDS: AMIODARONE 200 MG TABLET PO SCH ×2 (09:40→20:48)
[2020-01-05] MEDS: METOPROLOL TARTRATE 25 MG TABLET PO SCH ×2 (09:41→20:47)
[2020-01-05] MEDS: DILTIAZEM CD 120 MG CAPSULE PO SCH (09:41)
[2020-01-05] MEDS: APIXABAN 2.5 MG TABLET PO SCH ×2 (09:41→20:48)
[2020-01-05] MEDS: PARoxetine 20 MG TABLET PO SCH (09:44)
[2020-01-05] MEDS: ASCORBIC ACID 500 MG TABLET PO SCH (09:44)
[2020-01-05] MEDS: AZITHROMYCIN 250 MG TABLET PO SCH (09:44)
[2020-01-05] MEDS: ASPIRIN EC 81 MG TABLET PO SCH (09:44)
[2020-01-05] MEDS: CHOLECALCIFEROL 1,000 UNIT TABLET PO SCH (09:45)
[2020-01-05] MEDS: POTASSIUM CHLORIDE 20 MEQ TABLET PO SCH (09:45)
[2020-01-05] MEDS: MULTIVITAMIN (CENTRUM) TABLET PO SCH (09:45)
[2020-01-05] MEDS: cefTRIAXone 1,000 MG in SYRINGE 1 EACH IV SCH (09:45)
[2020-01-05] MEDS: ONDANSETRON 4 MG/2 ML VIAL IV PRN (12:37)
[2020-01-05] MEDS ORDERED: PROMETHAZINE INJ 12.5 MG in SODIUM CHLORIDE 0.9% 50 ML IV PRN (15:06)
[2020-01-05] MEDS ORDERED: PROMETHAZINE INJ 12.5 MG in SODIUM CHLORIDE 0.9% 50 ML IV ONE (15:30)
[2020-01-05 16:25] LABS: ABG Base Excess -1.2 MMOL/L (-2.5-2.5); ABG HCO3 23.1 MMOL/L (20-26); ABG Oxygen Saturation 84.3 % (95-100); ABG PO2 50.2 MM HG (80-95); ABG TCO2 20.3 MMOL/L (23-27)
[2020-01-05] MEDS: SODIUM CHLORIDE 0.45% 1,000 ML IV SCH (18:13)
[2020-01-05] MEDS ORDERED: FUROSEMIDE 20 MG/2 ML VIAL IV ONE ×2 (18:26→18:30)
[2020-01-05] MEDS ORDERED: CLORAZEPATE 3.75 MG TABLET PO ONE (19:58)
[2020-01-05] MEDS: SIMVASTATIN 20 MG TABLET PO SCH (20:53)
[2020-01-06 00:38] LABS: ABG Base Excess -3.9 MMOL/L (-2.5-2.5); ABG HCO3 19.9 MMOL/L (20-26); ABG Oxygen Saturation 88.3 % (95-100); ABG PCO2 32.5 MM HG (35-48); ABG PH 7.405 (7.35-7.45); ABG PO2 55.6 MM HG (80-95); ABG TCO2 20.9 MMOL/L (23-27); Allen Test Positive; Pt O2 Delivery Device Other
[2020-01-06 04:03] LABS: Hemoglobin 11.2 GM/DL (12.0-16.0); Immature Granulocytes % 0.8 %; Immature Granulocytes Absolute 0.07 #; Lymphocytes # 0.6 10*3/uL (1.4-4.0); Lymphocytes % 6.8 % (21.3-54.2); Mean Corpuscular Volume 90.4 FL (87-102); Mean Platelet Volume 9.4 FL (9.6-12.0); Monocytes % 4.3 % (1.7-12.7); Neutrophils % 88.1 % (38.7-73.9); Platelet Count 186 T/CUMM (130-400); Red Blood Count 3.87 MC/CUMM (3.8-5.5); Red Cell Distribution Width 13.9 % (9.3-17.3); White Blood Count 9.1 T/CUMM (4-12)
[2020-01-06 04:28] LABS: Ferritin 470.8 ng/ml (8-252)
[2020-01-06] MEDS ORDERED: LORazepam 2 MG/1 ML VIAL IV ONE (05:08)
[2020-01-06] MEDS ORDERED: LORazepam 2 MG/1 ML VIAL ONE (05:16)
[2020-01-06] MEDS: LEVOTHYROXINE 50 MCG TABLET PO SCH (05:21)
[2020-01-06 05:27] LABS: Albumin 2.2 G/DL (3.4-5.0); Bilirubin,Total 0.4 MG/DL (0.2-1.0); Calcium 8.9 MG/DL (8.5-10.1); Total Protein 5.9 G/DL (6.4-8.3)
[2020-01-06] MEDS: cefTRIAXone 1,000 MG in SYRINGE 1 EACH IV SCH (08:56)
[2020-01-06] MEDS: ZINC GLUCONATE 50 MG TABLET PO SCH (08:57)
[2020-01-06] MEDS: DILTIAZEM CD 120 MG CAPSULE PO SCH (08:57)
[2020-01-06] MEDS: POTASSIUM CHLORIDE 20 MEQ TABLET PO SCH (08:58)
[2020-01-06] MEDS: PARoxetine 20 MG TABLET PO SCH (08:58)
[2020-01-06] MEDS: APIXABAN 2.5 MG TABLET PO SCH ×2 (08:58→20:53)
[2020-01-06] MEDS: AMIODARONE 200 MG TABLET PO SCH ×2 (08:58→20:55)
[2020-01-06] MEDS: METOPROLOL TARTRATE 25 MG TABLET PO SCH ×2 (08:58→20:55)
[2020-01-06] MEDS: CHOLECALCIFEROL 1,000 UNIT TABLET PO SCH (08:58)
[2020-01-06] MEDS: AZITHROMYCIN 250 MG TABLET PO SCH (08:58)
[2020-01-06] MEDS: ASPIRIN EC 81 MG TABLET PO SCH (08:59)
[2020-01-06] MEDS ORDERED: FUROSEMIDE 40 MG/4 ML VIAL IV ONE (11:17)
[2020-01-06] MEDS: DEXMEDETOMIDINE 400 MCG in SODIUM CHLORIDE 0.9% 96 ML IV PRN (11:57)
[2020-01-06] MEDS ORDERED: SUCCINYLCHOLINE 200 MG/10 ML VIAL ONE (13:41)
[2020-01-06] MEDS ORDERED: ETOMIDATE 20 MG/10 ML VIAL IV ONE ×2 (13:41→14:03)
[2020-01-06] MEDS ORDERED: SUCCINYLCHOLINE 200 MG/10 ML VIAL IV ONE (14:03)
[2020-01-06] MEDS ORDERED: SODIUM CHLORIDE 0.9% 500 ML IV ONE (14:29)
[2020-01-06] MEDS ORDERED: NOREPINEPHRINE 4 MG/4 ML VIAL IV ONE (14:47)
[2020-01-06] MEDS: NOREPINEPHRINE 8 MG in SODIUM CHLORIDE 0.9% 242 ML IV PRN ×2 (15:00→20:01)
[2020-01-06 15:03] LABS: ABG Base Excess -13.8 MMOL/L (-2.5-2.5); ABG HCO3 13.7 MMOL/L (20-26); ABG PCO2 30.4 MM HG (35-48); ABG PH 7.231 (7.35-7.45); ABG TCO2 11.9 MMOL/L (23-27); Allen Test Positive; Pt O2 Delivery Device Ventilator
[2020-01-06 15:29] LABS: Bilirubin,Urine Negative (Negative); Blood, Urine Negative (Negative); Glucose,Urine (UA) Negative (Negative); Granular Casts,Urine 9 /LPF (0-1); Hyaline Casts,Urine 7 /LPF (0-3); Ketones,Urine 5 mg/dL (Negative); Mucus,Urine Occasional /LPF (Occasional); Nitrite,Urine Negative (Negative); Protein,Urine 30 MG/DL; RBC,Urine 2 /HPF (0-4); Squamous Epithelial Cell,Urine Occasional /HPF (0-10); Urine Appearance Slightly Hazy (Clear); Urine Color Yellow (Yellow); Urine Specific Gravity 1.015 (1.001-1.035); Urine Urobilinogen < 2.0 EU/DL (0.2-1.0); WBC,Urine 2 /HPF (0-6)
[2020-01-06] MEDS: SIMVASTATIN 20 MG TABLET PO SCH (20:55)
[2020-01-07 03:55] LABS: Basophils % 0.2 % (0.0-0.8); Hemoglobin 11.2 GM/DL (12.0-16.0); Immature Granulocytes % 2.1 %; Lymphocytes # 1.7 10*3/uL (1.4-4.0); Lymphocytes % 17.7 % (21.3-54.2); Mean Corpuscular HGB Conc 32.9 GM/DL (32-36); Mean Corpuscular Volume 88.5 FL (87-102); Mean Platelet Volume 10.2 FL (9.6-12.0); Monocytes % 4.5 % (1.7-12.7); NRBC # 0.02 10*3/uL; Neutrophils % 75.5 % (38.7-73.9); Platelet Count 207 T/CUMM (130-400); Red Blood Count 3.84 MC/CUMM (3.8-5.5); Red Cell Distribution Width 14.2 % (9.3-17.3); White Blood Count 9.7 T/CUMM (4-12)
[2020-01-07 04:15] LABS: Calcium 9.5 MG/DL (8.5-10.1); Osmolality,Calculated 281.7 MOS/KG (273-304)
[2020-01-07 04:16] LABS: Band Neutrophils 2 % (0-10); Hypochromasia Slight; Lymphocytes 16 % (20-55); Ovalocytes Slight; Platelet Estimate Adequate; Segmented Neutrophils 78 % (50-85); Total Cells Counted 100
[2020-01-07] MEDS: DEXMEDETOMIDINE 400 MCG in SODIUM CHLORIDE 0.9% 96 ML IV PRN (04:58)
[2020-01-07 05:00] LABS: Ferritin 7847.8 ng/ml (8-252)
[2020-01-07 05:24] LABS: Allen Test Positive; Pt O2 Delivery Device Ventilator
[2020-01-07 05:25] LABS: ABG Base Excess -2.5 MMOL/L (-2.5-2.5); ABG HCO3 22.3 MMOL/L (20-26); ABG Oxygen Saturation 99.9 % (95-100); ABG PCO2 28.3 MM HG (35-48); ABG TCO2 17.8 MMOL/L (23-27)
[2020-01-07] MEDS: LEVOTHYROXINE 50 MCG TABLET PO SCH (05:47)
[2020-01-07] MEDS: NOREPINEPHRINE 8 MG in SODIUM CHLORIDE 0.9% 242 ML IV PRN ×2 (06:01→17:37)
[2020-01-07] MEDS: cefTRIAXone 1,000 MG in SYRINGE 1 EACH IV SCH (08:14)
[2020-01-07] MEDS: ASCORBIC ACID 500 MG TABLET PO SCH (08:14)
[2020-01-07] MEDS: AMIODARONE 200 MG TABLET PO SCH ×2 (08:14→20:12)
[2020-01-07] MEDS: CHOLECALCIFEROL 1,000 UNIT TABLET PO SCH (08:15)
[2020-01-07] MEDS: POTASSIUM CHLORIDE 20 MEQ TABLET PO SCH (08:15)
[2020-01-07] MEDS: APIXABAN 2.5 MG TABLET PO SCH ×2 (08:15→20:12)
[2020-01-07] MEDS: AZITHROMYCIN 250 MG TABLET PO SCH (08:15)
[2020-01-07] MEDS: METOPROLOL TARTRATE 25 MG TABLET PO SCH ×2 (08:15→21:30)
[2020-01-07] MEDS: MULTIVITAMIN (CENTRUM) TABLET PO SCH (08:15)
[2020-01-07] MEDS: PARoxetine 20 MG TABLET PO SCH (08:15)
[2020-01-07] MEDS: DILTIAZEM 30 MG TABLET PO SCH ×4 (09:33→20:12)
[2020-01-07] MEDS: ASPIRIN CHEW 81 MG TABLET PO SCH (09:34)
[2020-01-07] MEDS ORDERED: DEXAMETHASONE 4 MG/1 ML VIAL IV SCH (10:30)
[2020-01-07] MEDS ORDERED: LACTATED RINGERS 1,000 ML IV ONE (12:28)
[2020-01-07] MEDS: LACTATED RINGERS 1,000 ML IV SCH (14:45)
[2020-01-07] MEDS: SIMVASTATIN 20 MG TABLET PO SCH (20:12)
[2020-01-08] MEDS: LACTATED RINGERS 1,000 ML IV SCH ×5 (01:11→20:08)
[2020-01-08 04:21] LABS: Basophils % 0.1 % (0.0-0.8); Eosinophils % 0.1 % (0.00-10.9); Hemoglobin 9.9 GM/DL (12.0-16.0); Immature Granulocytes % 1.2 %; Immature Granulocytes Absolute 0.11 #; Lymphocytes # 1.1 10*3/uL (1.4-4.0); Lymphocytes % 12.3 % (21.3-54.2); Mean Corpuscular Volume 87.7 FL (87-102); Mean Platelet Volume 9.6 FL (9.6-12.0); Monocytes % 3.5 % (1.7-12.7); Neutrophils % 82.8 % (38.7-73.9); Platelet Count 228 T/CUMM (130-400); Red Blood Count 3.42 MC/CUMM (3.8-5.5); Red Cell Distribution Width 14.4 % (9.3-17.3); White Blood Count 9.1 T/CUMM (4-12)
[2020-01-08 04:24] LABS: ABG Base Excess -3.8 MMOL/L (-2.5-2.5); ABG HCO3 21.3 MMOL/L (20-26); ABG Oxygen Saturation 99.6 % (95-100); ABG PH 7.474 (7.35-7.45); ABG TCO2 16.2 MMOL/L (23-27); Allen Test Positive; Pt O2 Delivery Device Ventilator
[2020-01-08 04:55] LABS: Hypochromasia 1+; Microcytosis Slight; Ovalocytes Slight
[2020-01-08 04:56] LABS: Platelet Estimate Normal
[2020-01-08 04:59] LABS: Albumin 1.8 G/DL (3.4-5.0); Calcium 9.8 MG/DL (8.5-10.1); Osmolality,Calculated 285.3 MOS/KG (273-304); Total Protein 5.6 G/DL (6.4-8.3)
[2020-01-08 05:09] LABS: Ferritin 4019.6 ng/ml (8-252)
[2020-01-08] MEDS: LEVOTHYROXINE 50 MCG TABLET PO SCH (05:41)
[2020-01-08] MEDS: DEXAMETHASONE 4 MG/1 ML VIAL IV SCH (08:31)
[2020-01-08] MEDS: ZINC GLUCONATE 50 MG TABLET PO SCH (08:34)
[2020-01-08] MEDS: POTASSIUM CHLORIDE 20 MEQ TABLET PO SCH (08:34)
[2020-01-08] MEDS: cefTRIAXone 1,000 MG in SYRINGE 1 EACH IV SCH (08:34)
[2020-01-08] MEDS: APIXABAN 2.5 MG TABLET PO SCH ×2 (08:35→20:10)
[2020-01-08] MEDS: DILTIAZEM 30 MG TABLET PO SCH ×4 (08:35→20:10)
[2020-01-08] MEDS: CHOLECALCIFEROL 1,000 UNIT TABLET PO SCH (08:35)
[2020-01-08] MEDS: ASPIRIN CHEW 81 MG TABLET PO SCH (08:35)
[2020-01-08] MEDS: AMIODARONE 200 MG TABLET PO SCH ×2 (08:36→20:10)
[2020-01-08] MEDS: PARoxetine 20 MG TABLET PO SCH (08:36)
[2020-01-08] MEDS: METOPROLOL TARTRATE 25 MG TABLET PO SCH ×2 (08:36→20:10)
[2020-01-08 11:35] LABS: ABG Base Excess -3.7 MMOL/L (-2.5-2.5); ABG HCO3 21.3 MMOL/L (20-26); ABG Oxygen Saturation 99.4 % (95-100); ABG PCO2 26.8 MM HG (35-48); ABG PH 7.463 (7.35-7.45); ABG TCO2 17.6 MMOL/L (23-27); Pt O2 Delivery Device Ventilator
[2020-01-08] MEDS: SIMVASTATIN 20 MG TABLET PO SCH (20:11)
[2020-01-09] MEDS: LACTATED RINGERS 1,000 ML IV SCH ×4 (01:01→17:05)
[2020-01-09 03:53] LABS: ABG Base Excess -2.5 MMOL/L (-2.5-2.5); ABG HCO3 22.3 MMOL/L (20-26); ABG Oxygen Saturation 99.4 % (95-100); ABG PCO2 30.3 MM HG (35-48); ABG PH 7.444 (7.35-7.45); ABG TCO2 19.1 MMOL/L (23-27); Allen Test Positive; Pt O2 Delivery Device Ventilator
[2020-01-09 04:59] LABS: Hematocrit 26.3 VOL% (35.7-47.0); Hemoglobin 8.8 GM/DL (12.0-16.0); Immature Granulocytes % 0.9 %; Immature Granulocytes Absolute 0.05 #; Lymphocytes # 0.4 10*3/uL (1.4-4.0); Lymphocytes % 7.1 % (21.3-54.2); Mean Corpuscular HGB Conc 33.5 GM/DL (32-36); Mean Corpuscular Volume 89.2 FL (87-102); Mean Platelet Volume 10.5 FL (9.6-12.0); Monocytes % 1.8 % (1.7-12.7); NRBC # 0.03 10*3/uL; Neutrophils % 90.2 % (38.7-73.9); Platelet Count 193 T/CUMM (130-400); Red Blood Count 2.95 MC/CUMM (3.8-5.5); Red Cell Distribution Width 14.7 % (9.3-17.3); White Blood Count 5.5 T/CUMM (4-12)
[2020-01-09 05:46] LABS: Albumin 1.5 G/DL (3.4-5.0); Bilirubin,Total 0.4 MG/DL (0.2-1.0); Calcium 9.9 MG/DL (8.5-10.1); Osmolality,Calculated 285.8 MOS/KG (273-304); Total Protein 5.2 G/DL (6.4-8.3)
[2020-01-09 05:48] LABS: Band Neutrophils 5 % (0-10); Lymphocytes 1 % (20-55); Microcytosis Slight; Nucleated Red Blood Cells 1 (0-5); Segmented Neutrophils 89 % (50-85); Total Cells Counted 100
[2020-01-09 05:49] LABS: Burr Cells Slight
[2020-01-09] MEDS: LEVOTHYROXINE 50 MCG TABLET PO SCH (05:55)
[2020-01-09 06:01] LABS: Ferritin 2645.4 ng/ml (8-252)
[2020-01-09] MEDS: MULTIVITAMIN (CENTRUM) TABLET PO SCH (08:07)
[2020-01-09] MEDS: POTASSIUM CHLORIDE 20 MEQ TABLET PO SCH (08:07)
[2020-01-09] MEDS: DEXAMETHASONE 4 MG/1 ML VIAL IV SCH (08:07)
[2020-01-09] MEDS: cefTRIAXone 1,000 MG in SYRINGE 1 EACH IV SCH (08:07)
[2020-01-09] MEDS: CHOLECALCIFEROL 1,000 UNIT TABLET PO SCH (08:07)
[2020-01-09] MEDS: METOPROLOL TARTRATE 25 MG TABLET PO SCH ×2 (08:07→20:03)
[2020-01-09] MEDS: ASCORBIC ACID 500 MG TABLET PO SCH (08:08)
[2020-01-09] MEDS: DILTIAZEM 30 MG TABLET PO SCH ×4 (08:08→20:03)
[2020-01-09] MEDS: APIXABAN 2.5 MG TABLET PO SCH ×2 (08:08→20:02)
[2020-01-09] MEDS: AMIODARONE 200 MG TABLET PO SCH ×2 (08:08→20:03)
[2020-01-09] MEDS: ASPIRIN CHEW 81 MG TABLET PO SCH (08:08)
[2020-01-09] MEDS: PARoxetine 20 MG TABLET PO SCH (08:08)
[2020-01-09] MEDS ORDERED: DEXTROSE 50% 25 GM/50 ML VIAL IV PRN (11:51)
[2020-01-09] MEDS ORDERED: GLUCAGON 1 MG VIAL IM PRN (11:51)
[2020-01-09] MEDS: INSULIN LISPRO 100 UNIT/ML SUBCUT SCH ×2 (12:37→18:05)
[2020-01-09] MEDS: SIMVASTATIN 20 MG TABLET PO SCH (20:03)
[2020-01-10] MEDS: INSULIN LISPRO 100 UNIT/ML SUBCUT SCH ×4 (01:10→17:46)
[2020-01-10] MEDS: LACTATED RINGERS 1,000 ML IV SCH ×3 (01:59→18:27)
[2020-01-10 04:24] LABS: Calcium 10.4 MG/DL (8.5-10.1)
[2020-01-10 04:30] LABS: ABG Base Excess -3.2 MMOL/L (-2.5-2.5); ABG HCO3 19.9 MMOL/L (20-26); ABG Oxygen Saturation 98.6 % (95-100); ABG PCO2 29.6 MM HG (35-48); ABG PH 7.446 (7.35-7.45); ABG PO2 155.3 MM HG (80-95); ABG TCO2 20.8 MMOL/L (23-27); Allen Test Positive; Pt O2 Delivery Device Ventilator
[2020-01-10] MEDS: LEVOTHYROXINE 50 MCG TABLET PO SCH (05:43)
[2020-01-10] MEDS: ZINC GLUCONATE 50 MG TABLET PO SCH (08:53)
[2020-01-10] MEDS: DILTIAZEM 30 MG TABLET PO SCH ×4 (08:53→20:45)
[2020-01-10] MEDS: CHOLECALCIFEROL 1,000 UNIT TABLET PO SCH (08:54)
[2020-01-10] MEDS: AMIODARONE 200 MG TABLET PO SCH ×2 (08:54→20:45)
[2020-01-10] MEDS: APIXABAN 2.5 MG TABLET PO SCH ×2 (08:54→20:45)
[2020-01-10] MEDS: METOPROLOL TARTRATE 25 MG TABLET PO SCH ×2 (08:54→20:45)
[2020-01-10] MEDS: ASPIRIN CHEW 81 MG TABLET PO SCH (08:54)
[2020-01-10] MEDS: DEXAMETHASONE 4 MG/1 ML VIAL IV SCH (08:55)
[2020-01-10] MEDS: cefTRIAXone 1,000 MG in SYRINGE 1 EACH IV SCH (08:55)
[2020-01-10] MEDS: POTASSIUM CHLORIDE 20 MEQ TABLET PO SCH (08:55)
[2020-01-10] MEDS: PARoxetine 20 MG TABLET PO SCH (08:55)
[2020-01-10 10:11] LABS: Basophils % 0.1 % (0.0-0.8); Hematocrit 29.6 VOL% (35.7-47.0); Hemoglobin 9.8 GM/DL (12.0-16.0); Immature Granulocytes % 1.6 %; Immature Granulocytes Absolute 0.19 #; Lymphocytes # 0.9 10*3/uL (1.4-4.0); Lymphocytes % 7.3 % (21.3-54.2); Mean Corpuscular HGB Conc 33.1 GM/DL (32-36); Mean Corpuscular Volume 88.6 FL (87-102); Mean Platelet Volume 10.2 FL (9.6-12.0); Monocytes % 4.5 % (1.7-12.7); NRBC # 0.24 10*3/uL; Neutrophils % 86.5 % (38.7-73.9); Platelet Count 301 T/CUMM (130-400); Red Blood Count 3.34 MC/CUMM (3.8-5.5); Red Cell Distribution Width 14.8 % (9.3-17.3); White Blood Count 11.9 T/CUMM (4-12)
[2020-01-10] MEDS: SIMVASTATIN 20 MG TABLET PO SCH (20:46)
[2020-01-11] MEDS: INSULIN LISPRO 100 UNIT/ML SUBCUT SCH ×4 (00:12→17:15)
[2020-01-11 04:52] LABS: ABG HCO3 20.8 MMOL/L (20-26); ABG Oxygen Saturation 98.4 % (95-100); ABG PCO2 28.9 MM HG (35-48); ABG PH 7.474 (7.35-7.45); ABG PO2 137.4 MM HG (80-95); ABG TCO2 21.6 MMOL/L (23-27)
[2020-01-11 04:54] LABS: Basophils % 0.2 % (0.0-0.8); Hematocrit 30.6 VOL% (35.7-47.0); Hemoglobin 9.7 GM/DL (12.0-16.0); Immature Granulocytes Absolute 0.25 #; Lymphocytes # 0.7 10*3/uL (1.4-4.0); Lymphocytes % 5.3 % (21.3-54.2); Mean Corpuscular HGB Conc 31.7 GM/DL (32-36); Mean Corpuscular Volume 91.1 FL (87-102); Monocytes % 5.4 % (1.7-12.7); NRBC # 0.19 10*3/uL; Neutrophils % 87.1 % (38.7-73.9); Platelet Count 339 T/CUMM (130-400); Red Blood Count 3.36 MC/CUMM (3.8-5.5); Red Cell Distribution Width 14.9 % (9.3-17.3); White Blood Count 12.7 T/CUMM (4-12)
[2020-01-11 05:19] LABS: Calcium 10.3 MG/DL (8.5-10.1); Osmolality,Calculated 292.7 MOS/KG (273-304)
[2020-01-11] MEDS: LEVOTHYROXINE 50 MCG TABLET PO SCH (06:02)
[2020-01-11 06:03] LABS: Band Neutrophils 1 % (0-10); Lymphocytes 8 % (20-55); Nucleated Red Blood Cells 1 (0-5); Platelet Estimate Normal; Segmented Neutrophils 88 % (50-85); Total Cells Counted 100
[2020-01-11] MEDS: LACTATED RINGERS 1,000 ML IV SCH ×3 (08:34→22:16)
[2020-01-11] MEDS: DEXAMETHASONE 4 MG/1 ML VIAL IV SCH (08:34)
[2020-01-11] MEDS: CHOLECALCIFEROL 1,000 UNIT TABLET PO SCH (08:35)
[2020-01-11] MEDS: MULTIVITAMIN (CENTRUM) TABLET PO SCH (08:35)
[2020-01-11] MEDS: cefTRIAXone 1,000 MG in SYRINGE 1 EACH IV SCH (08:35)
[2020-01-11] MEDS: POTASSIUM CHLORIDE 20 MEQ TABLET PO SCH (08:35)
[2020-01-11] MEDS: PARoxetine 20 MG TABLET PO SCH (08:36)
[2020-01-11] MEDS: ASCORBIC ACID 500 MG TABLET PO SCH (08:36)
[2020-01-11] MEDS: METOPROLOL TARTRATE 25 MG TABLET PO SCH ×2 (08:36→21:20)
[2020-01-11] MEDS: DILTIAZEM 30 MG TABLET PO SCH ×4 (08:36→20:06)
[2020-01-11] MEDS: APIXABAN 2.5 MG TABLET PO SCH ×2 (08:36→20:06)
[2020-01-11] MEDS: AMIODARONE 200 MG TABLET PO SCH ×2 (08:37→20:06)
[2020-01-11] MEDS: ASPIRIN CHEW 81 MG TABLET PO SCH (08:37)
[2020-01-11] MEDS: DEXMEDETOMIDINE 400 MCG in SODIUM CHLORIDE 0.9% 96 ML IV PRN ×2 (09:36→21:00)
[2020-01-11] MEDS ORDERED: DEXTROSE 50% 25 GM/50 ML VIAL IV PRN (13:29)
[2020-01-11] MEDS ORDERED: NOREPINEPHRINE 4 MG/4 ML VIAL IV ONE (19:42)
[2020-01-11] MEDS: NOREPINEPHRINE 8 MG in SODIUM CHLORIDE 0.9% 242 ML IV PRN (19:44)
[2020-01-11] MEDS: SIMVASTATIN 20 MG TABLET PO SCH (20:06)
[2020-01-12] MEDS: INSULIN LISPRO 100 UNIT/ML SUBCUT SCH ×4 (01:35→17:01)
[2020-01-12 04:55] LABS: Basophils % 0.2 % (0.0-0.8); Hematocrit 29.4 VOL% (35.7-47.0); Hemoglobin 9.5 GM/DL (12.0-16.0); Immature Granulocytes % 3.4 %; Lymphocytes # 0.5 10*3/uL (1.4-4.0); Lymphocytes % 4.2 % (21.3-54.2); Mean Corpuscular HGB Conc 32.3 GM/DL (32-36); Mean Corpuscular Volume 90.2 FL (87-102); Mean Platelet Volume 10.1 FL (9.6-12.0); Monocytes % 6.3 % (1.7-12.7); NRBC # 0.35 10*3/uL; Neutrophils % 85.9 % (38.7-73.9); Platelet Count 312 T/CUMM (130-400); Red Blood Count 3.26 MC/CUMM (3.8-5.5); Red Cell Distribution Width 14.7 % (9.3-17.3); White Blood Count 11.7 T/CUMM (4-12)
[2020-01-12 05:04] LABS: ABG Base Excess -0.9 MMOL/L (-2.5-2.5); ABG HCO3 23.7 MMOL/L (20-26); ABG Oxygen Saturation 99.6 % (95-100); ABG PCO2 30.4 MM HG (35-48); ABG PH 7.468 (7.35-7.45); Allen Test Positive; Pt O2 Delivery Device Ventilator
[2020-01-12 05:16] LABS: Band Neutrophils 1 % (0-10); Lymphocytes 4 % (20-55); Nucleated Red Blood Cells 2 (0-5); Segmented Neutrophils 89 % (50-85); Total Cells Counted 100
[2020-01-12 05:17] LABS: Hypochromasia 1+; Ovalocytes Slight; Platelet Estimate Adequate
[2020-01-12 05:40] LABS: Calcium 9.8 MG/DL (8.5-10.1); Osmolality,Calculated 296.4 MOS/KG (273-304)
[2020-01-12] MEDS: DEXMEDETOMIDINE 400 MCG in SODIUM CHLORIDE 0.9% 96 ML IV PRN ×2 (06:59→21:52)
[2020-01-12] MEDS: LEVOTHYROXINE 50 MCG TABLET PO SCH (07:20)
[2020-01-12] MEDS: METOPROLOL TARTRATE 25 MG TABLET PO SCH ×2 (08:00→21:31)
[2020-01-12] MEDS: CHOLECALCIFEROL 1,000 UNIT TABLET PO SCH (08:13)
[2020-01-12] MEDS: APIXABAN 2.5 MG TABLET PO SCH ×2 (08:13→21:03)
[2020-01-12] MEDS: ZINC GLUCONATE 50 MG TABLET PO SCH (08:13)
[2020-01-12] MEDS: DILTIAZEM 30 MG TABLET PO SCH ×4 (08:14→21:30)
[2020-01-12] MEDS: PARoxetine 20 MG TABLET PO SCH (08:14)
[2020-01-12] MEDS: ASPIRIN CHEW 81 MG TABLET PO SCH (08:14)
[2020-01-12] MEDS: DEXAMETHASONE 4 MG/1 ML VIAL IV SCH (08:15)
[2020-01-12] MEDS: AMIODARONE 200 MG TABLET PO SCH ×2 (08:16→21:03)
[2020-01-12] MEDS: POTASSIUM CHLORIDE 20 MEQ TABLET PO SCH (09:32)
[2020-01-12] MEDS ORDERED: FUROSEMIDE 40 MG/4 ML VIAL IV ONE (10:00)
[2020-01-12] MEDS ORDERED: POLYETHYLENE GLYCOL POWDER 17 GM PACK PO PRN (18:00)
[2020-01-12] MEDS: SIMVASTATIN 20 MG TABLET PO SCH (21:04)
[2020-01-13] MEDS: INSULIN LISPRO 100 UNIT/ML SUBCUT SCH ×4 (00:52→18:52)
[2020-01-13 04:08] LABS: ABG Base Excess 1.1 MMOL/L (-2.5-2.5); ABG HCO3 23.3 MMOL/L (20-26); ABG PCO2 30.5 MM HG (35-48); ABG PH 7.501 (7.35-7.45); ABG PO2 142.2 MM HG (80-95); ABG TCO2 24.2 MMOL/L (23-27)
[2020-01-13 04:44] LABS: Basophils % 0.2 % (0.0-0.8); Hemoglobin 9.6 GM/DL (12.0-16.0); Immature Granulocytes Absolute 0.35 #; Lymphocytes # 0.5 10*3/uL (1.4-4.0); Lymphocytes % 4.6 % (21.3-54.2); Mean Corpuscular Volume 91.5 FL (87-102); Monocytes % 5.3 % (1.7-12.7); NRBC # 0.09 10*3/uL; Neutrophils % 86.9 % (38.7-73.9); Platelet Count 321 T/CUMM (130-400); Red Blood Count 3.28 MC/CUMM (3.8-5.5); Red Cell Distribution Width 14.6 % (9.3-17.3); White Blood Count 11.6 T/CUMM (4-12)
[2020-01-13 05:06] LABS: Calcium 10.2 MG/DL (8.5-10.1); Osmolality,Calculated 295.3 MOS/KG (273-304)
[2020-01-13 05:27] LABS: Band Neutrophils 1 % (0-10); Hypochromasia 1+; Lymphocytes 7 % (20-55); Platelet Estimate Adequate; Segmented Neutrophils 89 % (50-85); Total Cells Counted 100
[2020-01-13 05:28] LABS: Ovalocytes Slight
[2020-01-13] MEDS: LEVOTHYROXINE 50 MCG TABLET PO SCH (06:23)
[2020-01-13] MEDS: DEXAMETHASONE 4 MG/1 ML VIAL IV SCH (08:00)
[2020-01-13] MEDS: METOPROLOL TARTRATE 25 MG TABLET PO SCH ×3 (08:00→20:01)
[2020-01-13] MEDS: CHOLECALCIFEROL 1,000 UNIT TABLET PO SCH (08:01)
[2020-01-13] MEDS: PARoxetine 20 MG TABLET PO SCH (08:01)
[2020-01-13] MEDS: DILTIAZEM 30 MG TABLET PO SCH ×4 (08:01→20:01)
[2020-01-13] MEDS: ASCORBIC ACID 500 MG TABLET PO SCH (08:01)
[2020-01-13] MEDS: ASPIRIN CHEW 81 MG TABLET PO SCH (08:01)
[2020-01-13] MEDS: AMIODARONE 200 MG TABLET PO SCH ×2 (08:02→20:01)
[2020-01-13] MEDS: APIXABAN 2.5 MG TABLET PO SCH ×2 (08:02→20:01)
[2020-01-13] MEDS: POTASSIUM CHLORIDE 20 MEQ TABLET PO SCH (09:58)
[2020-01-13] MEDS: MULTIVITAMIN (CENTRUM) TABLET PO SCH ×2 (09:59→10:05)
[2020-01-13] MEDS: SIMVASTATIN 20 MG TABLET PO SCH (20:01)
[2020-01-14] MEDS: INSULIN LISPRO 100 UNIT/ML SUBCUT SCH ×4 (00:59→18:22)
[2020-01-14 03:31] LABS: ABG Base Excess -0.2 MMOL/L (-2.5-2.5); ABG HCO3 23.8 MMOL/L (20-26); ABG Oxygen Saturation 73.5 % (95-100); ABG PH 7.361 (7.35-7.45); ABG PO2 43.8 MM HG (80-95)
[2020-01-14 04:03] LABS: Basophils % 0.2 % (0.0-0.8); Hematocrit 33.9 VOL% (35.7-47.0); Hemoglobin 10.9 GM/DL (12.0-16.0); Immature Granulocytes % 3.3 %; Immature Granulocytes Absolute 0.57 #; Lymphocytes # 0.6 10*3/uL (1.4-4.0); Lymphocytes % 3.3 % (21.3-54.2); Mean Corpuscular HGB Conc 32.2 GM/DL (32-36); Mean Corpuscular Volume 92.1 FL (87-102); Mean Platelet Volume 10.1 FL (9.6-12.0); Monocytes % 6.8 % (1.7-12.7); NRBC # 0.09 10*3/uL; Neutrophils % 86.4 % (38.7-73.9); Platelet Count 499 T/CUMM (130-400); Red Blood Count 3.68 MC/CUMM (3.8-5.5); Red Cell Distribution Width 15.2 % (9.3-17.3); White Blood Count 17.5 T/CUMM (4-12)
[2020-01-14 04:14] LABS: Calcium 10.8 MG/DL (8.5-10.1); Osmolality,Calculated 297.3 MOS/KG (273-304)
[2020-01-14 04:45] LABS: Nucleated Red Blood Cells 2 (0-5)
[2020-01-14 04:46] LABS: Anisocytosis 2+; Band Neutrophils 1 % (0-10); Hypochromasia 1+; Lymphocytes 4 % (20-55); Macrocytosis 2+; Metamyelocytes 2 %; Platelet Estimate Increased; Polychromasia Few; Segmented Neutrophils 85 % (50-85); Target Cells 1+; Total Cells Counted 100
[2020-01-14 05:32] LABS: ABG Base Excess -0.3 MMOL/L (-2.5-2.5); ABG Oxygen Saturation 92.1 % (95-100); ABG PCO2 41.2 MM HG (35-48); ABG PH 7.386 (7.35-7.45); ABG PO2 66.8 MM HG (80-95); ABG TCO2 22.1 MMOL/L (23-27)
[2020-01-14] MEDS: LEVOTHYROXINE 50 MCG TABLET PO SCH (06:49)
[2020-01-14] MEDS ORDERED: FUROSEMIDE 40 MG/4 ML VIAL IV ONE (07:05)
[2020-01-14 07:44] LABS: ABG HCO3 24.3 MMOL/L (20-26); ABG Oxygen Saturation 89.5 % (95-100); ABG PCO2 39.6 MM HG (35-48); ABG PH 7.402 (7.35-7.45); ABG PO2 59.3 MM HG (80-95)
[2020-01-14] MEDS ORDERED: CLORAZEPATE 3.75 MG TABLET PO PRN (07:48)
[2020-01-14] MEDS: ASPIRIN CHEW 81 MG TABLET PO SCH (08:09)
[2020-01-14] MEDS: DILTIAZEM 30 MG TABLET PO SCH ×4 (08:09→20:19)
[2020-01-14] MEDS: AMIODARONE 200 MG TABLET PO SCH ×2 (08:10→20:19)
[2020-01-14] MEDS: DEXAMETHASONE 4 MG/1 ML VIAL IV SCH (08:10)
[2020-01-14] MEDS: APIXABAN 2.5 MG TABLET PO SCH ×2 (08:11→20:19)
[2020-01-14] MEDS: CHOLECALCIFEROL 1,000 UNIT TABLET PO SCH (08:11)
[2020-01-14] MEDS: PARoxetine 20 MG TABLET PO SCH (08:11)
[2020-01-14] MEDS: POTASSIUM CHLORIDE 20 MEQ TABLET PO SCH (08:11)
[2020-01-14] MEDS: METOPROLOL TARTRATE 25 MG TABLET PO SCH ×2 (08:11→20:19)
[2020-01-14] MEDS: ZINC GLUCONATE 50 MG TABLET PO SCH (08:12)
[2020-01-14] MEDS: FUROSEMIDE 40 MG/4 ML VIAL IV SCH (15:05)
[2020-01-14] MEDS: SIMVASTATIN 20 MG TABLET PO SCH (20:19)
[2020-01-15] MEDS: INSULIN LISPRO 100 UNIT/ML SUBCUT SCH ×5 (00:04→17:46)
[2020-01-15 05:01] LABS: ABG Base Excess 6.5 MMOL/L (-2.5-2.5); ABG HCO3 30.9 MMOL/L (20-26); ABG Oxygen Saturation 97.1 % (95-100); ABG PH 7.465 (7.35-7.45); ABG PO2 93.7 MM HG (80-95); ABG TCO2 32.3 MMOL/L (23-27); Allen Test Positive; Pt O2 Delivery Device Other
[2020-01-15 05:20] LABS: Calcium 10.4 MG/DL (8.5-10.1)
[2020-01-15] MEDS: LEVOTHYROXINE 50 MCG TABLET PO SCH (05:34)
[2020-01-15] MEDS: FUROSEMIDE 40 MG/4 ML VIAL IV SCH ×2 (07:49→15:31)
[2020-01-15] MEDS: ASCORBIC ACID 500 MG TABLET PO SCH (08:00)
[2020-01-15] MEDS: DEXAMETHASONE 4 MG/1 ML VIAL IV SCH (08:00)
[2020-01-15] MEDS: ASPIRIN CHEW 81 MG TABLET PO SCH (08:00)
[2020-01-15] MEDS: AMIODARONE 200 MG TABLET PO SCH ×2 (08:00→20:20)
[2020-01-15] MEDS: DILTIAZEM 30 MG TABLET PO SCH ×4 (08:00→20:20)
[2020-01-15] MEDS: APIXABAN 2.5 MG TABLET PO SCH ×2 (08:00→20:21)
[2020-01-15] MEDS: POTASSIUM CHLORIDE 20 MEQ TABLET PO SCH (08:00)
[2020-01-15] MEDS: CHOLECALCIFEROL 1,000 UNIT TABLET PO SCH (08:00)
[2020-01-15] MEDS: PARoxetine 20 MG TABLET PO SCH (08:01)
[2020-01-15] MEDS: METOPROLOL TARTRATE 25 MG TABLET PO SCH ×2 (08:01→20:21)
[2020-01-15] MEDS: MULTIVITAMIN (CENTRUM) TABLET PO SCH (08:03)
[2020-01-15 10:38] LABS: Basophils % 0.1 % (0.0-0.8); Hematocrit 34.6 VOL% (35.7-47.0); Immature Granulocytes % 1.5 %; Immature Granulocytes Absolute 0.25 #; Lymphocytes # 0.4 10*3/uL (1.4-4.0); Lymphocytes % 2.5 % (21.3-54.2); Mean Corpuscular HGB Conc 31.8 GM/DL (32-36); Mean Corpuscular Volume 92.8 FL (87-102); Mean Platelet Volume 10.2 FL (9.6-12.0); NRBC # 0.02 10*3/uL; Neutrophils % 90.9 % (38.7-73.9); Platelet Count 483 T/CUMM (130-400); Red Blood Count 3.73 MC/CUMM (3.8-5.5); Red Cell Distribution Width 15.2 % (9.3-17.3); White Blood Count 17.2 T/CUMM (4-12)
[2020-01-15 11:23] LABS: Lymphocytes 1 % (20-55); Segmented Neutrophils 95 % (50-85); Total Cells Counted 100
[2020-01-15 11:24] LABS: Giant Platelets Few; Platelet Estimate Increased; Polychromasia Slight
[2020-01-15] MEDS ORDERED: hydrALAZINE 20 MG/1 ML VIAL IM PRN (14:59)
[2020-01-15] MEDS ORDERED: hydrALAZINE 20 MG/1 ML VIAL IV PRN (15:29)
[2020-01-15] MEDS: SIMVASTATIN 20 MG TABLET PO SCH (20:21)
[2020-01-16] MEDS: INSULIN LISPRO 100 UNIT/ML SUBCUT SCH ×4 (00:14→17:53)
[2020-01-16 04:54] LABS: ABG Base Excess 9.3 MMOL/L (-2.5-2.5); ABG HCO3 34.2 MMOL/L (20-26); ABG Oxygen Saturation 96.8 % (95-100); ABG PCO2 47.9 MM HG (35-48); ABG PH 7.472 (7.35-7.45); ABG PO2 89.9 MM HG (80-95); ABG TCO2 35.7 MMOL/L (23-27); Allen Test Positive
[2020-01-16] MEDS: LEVOTHYROXINE 50 MCG TABLET PO SCH (06:10)
[2020-01-16 06:43] LABS: Basophils % 0.2 % (0.0-0.8); Hematocrit 34.4 VOL% (35.7-47.0); Hemoglobin 10.8 GM/DL (12.0-16.0); Immature Granulocytes % 1.2 %; Immature Granulocytes Absolute 0.21 #; Lymphocytes # 0.6 10*3/uL (1.4-4.0); Lymphocytes % 3.7 % (21.3-54.2); Mean Corpuscular HGB Conc 31.4 GM/DL (32-36); Mean Corpuscular Volume 93.5 FL (87-102); Mean Platelet Volume 10.2 FL (9.6-12.0); Monocytes % 6.1 % (1.7-12.7); Neutrophils % 88.8 % (38.7-73.9); Platelet Count 467 T/CUMM (130-400); Red Blood Count 3.68 MC/CUMM (3.8-5.5); Red Cell Distribution Width 15.4 % (9.3-17.3); White Blood Count 16.8 T/CUMM (4-12)
[2020-01-16 06:59] LABS: Calcium 10.5 MG/DL (8.5-10.1); Osmolality,Calculated 297.1 MOS/KG (273-304)
[2020-01-16 08:40] LABS: Band Neutrophils 1 % (0-10); Hypochromasia 1+; Lymphocytes 5 % (20-55); Ovalocytes Few; Polychromasia Slight; Segmented Neutrophils 89 % (50-85); Target Cells Few; Total Cells Counted 100
[2020-01-16 08:41] LABS: Platelet Estimate Increased
[2020-01-16] MEDS: DEXAMETHASONE 4 MG/1 ML VIAL IV SCH (09:30)
[2020-01-16] MEDS: FUROSEMIDE 40 MG/4 ML VIAL IV SCH (09:30)
[2020-01-16] MEDS: ZINC GLUCONATE 50 MG TABLET PO SCH (09:30)
[2020-01-16] MEDS: POTASSIUM CHLORIDE 20 MEQ TABLET PO SCH (09:30)
[2020-01-16] MEDS: AMIODARONE 200 MG TABLET PO SCH ×2 (09:36→21:28)
[2020-01-16] MEDS: CHOLECALCIFEROL 1,000 UNIT TABLET PO SCH (09:36)
[2020-01-16] MEDS: DILTIAZEM 30 MG TABLET PO SCH ×4 (09:36→21:28)
[2020-01-16] MEDS: ASPIRIN CHEW 81 MG TABLET PO SCH (09:36)
[2020-01-16] MEDS: APIXABAN 2.5 MG TABLET PO SCH ×2 (09:36→21:28)
[2020-01-16] MEDS: METOPROLOL TARTRATE 25 MG TABLET PO SCH ×2 (09:36→21:28)
[2020-01-16] MEDS: PARoxetine 20 MG TABLET PO SCH (09:36)
[2020-01-16] MEDS: SIMVASTATIN 20 MG TABLET PO SCH (21:28)
[2020-01-17] MEDS: INSULIN LISPRO 100 UNIT/ML SUBCUT SCH ×4 (01:00→17:52)
[2020-01-17 04:10] LABS: Basophils % 0.1 % (0.0-0.8); Eosinophils % 0.2 % (0.00-10.9); Hematocrit 33.4 VOL% (35.7-47.0); Hemoglobin 10.6 GM/DL (12.0-16.0); Immature Granulocytes Absolute 0.16 #; Lymphocytes # 0.8 10*3/uL (1.4-4.0); Lymphocytes % 4.9 % (21.3-54.2); Mean Corpuscular HGB Conc 31.7 GM/DL (32-36); Mean Corpuscular Volume 92.3 FL (87-102); Mean Platelet Volume 10.2 FL (9.6-12.0); Neutrophils % 88.8 % (38.7-73.9); Platelet Count 460 T/CUMM (130-400); Red Blood Count 3.62 MC/CUMM (3.8-5.5); Red Cell Distribution Width 15.3 % (9.3-17.3); White Blood Count 15.8 T/CUMM (4-12)
[2020-01-17 04:43] LABS: Albumin 1.9 G/DL (3.4-5.0); Calcium 10.4 MG/DL (8.5-10.1); Ferritin 561.6 ng/ml (8-252); Osmolality,Calculated 295.4 MOS/KG (273-304); Total Protein 5.6 G/DL (6.4-8.3)
[2020-01-17 05:00] LABS: Lymphocytes 4 % (20-55); Platelet Estimate Adequate; Segmented Neutrophils 88 % (50-85); Total Cells Counted 100
[2020-01-17 05:01] LABS: Hypochromasia 1+; Microcytosis Slight; Ovalocytes Slight
[2020-01-17] MEDS: LEVOTHYROXINE 50 MCG TABLET PO SCH (05:40)
[2020-01-17] MEDS: ASPIRIN CHEW 81 MG TABLET PO SCH (10:13)
[2020-01-17] MEDS: DILTIAZEM 30 MG TABLET PO SCH ×4 (10:13→21:10)
[2020-01-17] MEDS: MULTIVITAMIN (CENTRUM) TABLET PO SCH (10:13)
[2020-01-17] MEDS: APIXABAN 2.5 MG TABLET PO SCH ×2 (10:14→21:10)
[2020-01-17] MEDS: PARoxetine 20 MG TABLET PO SCH (10:14)
[2020-01-17] MEDS: CHOLECALCIFEROL 1,000 UNIT TABLET PO SCH (10:14)
[2020-01-17] MEDS: FUROSEMIDE 40 MG/4 ML VIAL IV SCH (10:14)
[2020-01-17] MEDS: AMIODARONE 200 MG TABLET PO SCH ×2 (10:14→21:10)
[2020-01-17] MEDS: METOPROLOL TARTRATE 25 MG TABLET PO SCH ×2 (10:14→21:10)
[2020-01-17] MEDS: ASCORBIC ACID 500 MG TABLET PO SCH (13:50)
[2020-01-17] MEDS: SIMVASTATIN 20 MG TABLET PO SCH (21:11)
[2020-01-18] MEDS: INSULIN LISPRO 100 UNIT/ML SUBCUT SCH ×5 (00:58→23:38)
[2020-01-18] MEDS: LEVOTHYROXINE 50 MCG TABLET PO SCH (06:32)
[2020-01-18] MEDS: METOPROLOL TARTRATE 25 MG TABLET PO SCH ×2 (09:02→20:37)
[2020-01-18] MEDS: CHOLECALCIFEROL 1,000 UNIT TABLET PO SCH (09:02)
[2020-01-18] MEDS: AMIODARONE 200 MG TABLET PO SCH ×2 (09:02→20:37)
[2020-01-18] MEDS: APIXABAN 2.5 MG TABLET PO SCH (09:02)
[2020-01-18] MEDS: PARoxetine 20 MG TABLET PO SCH (09:03)
[2020-01-18] MEDS: DILTIAZEM 30 MG TABLET PO SCH ×4 (09:03→20:37)
[2020-01-18] MEDS: ASPIRIN CHEW 81 MG TABLET PO SCH (09:03)
[2020-01-18] MEDS: FUROSEMIDE 40 MG/4 ML VIAL IV SCH (09:03)
[2020-01-18] MEDS: SIMVASTATIN 20 MG TABLET PO SCH (20:37)
[2020-01-19 03:38] LABS: Basophils % 0.1 % (0.0-0.8); Eosinophils # 0.1 10*3/uL (0.0-0.87); Eosinophils % 1.1 % (0.00-10.9); Hematocrit 32.9 VOL% (35.7-47.0); Hemoglobin 10.1 GM/DL (12.0-16.0); Immature Granulocytes Absolute 0.13 #; Lymphocytes # 0.9 10*3/uL (1.4-4.0); Lymphocytes % 7.3 % (21.3-54.2); Mean Corpuscular HGB Conc 30.7 GM/DL (32-36); Mean Corpuscular Volume 94.3 FL (87-102); Mean Platelet Volume 9.8 FL (9.6-12.0); Neutrophils % 85.5 % (38.7-73.9); Platelet Count 423 T/CUMM (130-400); Red Blood Count 3.49 MC/CUMM (3.8-5.5); Red Cell Distribution Width 15.2 % (9.3-17.3); White Blood Count 12.8 T/CUMM (4-12)
[2020-01-19 04:04] LABS: Calcium 10.5 MG/DL (8.5-10.1); Osmolality,Calculated 290.3 MOS/KG (273-304)
[2020-01-19] MEDS: INSULIN LISPRO 100 UNIT/ML SUBCUT SCH ×2 (05:29→12:54)
[2020-01-19] MEDS: LEVOTHYROXINE 50 MCG TABLET PO SCH (05:48)
[2020-01-19] MEDS: FUROSEMIDE 40 MG/4 ML VIAL IV SCH (08:44)
[2020-01-19] MEDS: AMIODARONE 200 MG TABLET PO SCH (08:44)
[2020-01-19] MEDS: ASPIRIN CHEW 81 MG TABLET PO SCH (08:44)
[2020-01-19] MEDS: MULTIVITAMIN (CENTRUM) TABLET PO SCH (08:44)
[2020-01-19] MEDS: DILTIAZEM 30 MG TABLET PO SCH ×3 (08:44→16:23)
[2020-01-19] MEDS: METOPROLOL TARTRATE 25 MG TABLET PO SCH (08:45)
[2020-01-19] MEDS: PARoxetine 20 MG TABLET PO SCH (08:45)
[2020-01-19] MEDS: ASCORBIC ACID 500 MG TABLET PO SCH (08:45)
[2020-01-19] MEDS: CHOLECALCIFEROL 1,000 UNIT TABLET PO SCH (08:45)
[2020-01-19 16:37] VITALS: BP 155/85
== END 2020-01-19 17:30 | DRG 207 ==
LOC: N.ED 11:31 → SUATTDRO 18:07 → N.EDINP 18:07 → N.2E 21:49 → N.CC 01-06 01:09 → N.2E 01-15 17:28
PROVIDERS: ADMIT Hospitalist; ATTEND Hospitalist